=== PATIENT | male | born 1960 | race Hispanic/Latino ===

== ENCOUNTER 2018-11-20 07:06 | Day surgery (SDC) | payer BC ==
[2018-11-20 07:41] VITALS: BP 106/47
[2018-11-20 08:04] LABS: INR 1.09 (0.87-1.13)
[2018-11-20 08:05] LABS: Partial Thromboplastin Time 27.1 Sec. (24.2-36.6)
[2018-11-20 08:08] LABS: BUN/Creatinine Ratio 15; Basophils % (Auto) 0.9 % (0.0-1.8); Blood Urea Nitrogen 12 mg/dL (9-20); Calcium 8.5 mg/dL (8.4-10.2); Eosinophils # (Auto) 0.1 K/mm3 (0.0-0.4); Eosinophils % (Auto) 3.2 % (0.0-4.3); Hemoglobin 11.6 gm/dl (11.8-15.2); Hemolysis Index 41; Lymphocytes # (Auto) 0.8 K/mm3 (1.2-5.4); Lymphocytes % (Auto) 31.1 % (13.4-35.0); Mean Corpuscular HGB Conc 33 % (32-34); Mean Corpuscular Volume 92 fl (84-94); Monocytes # (Auto) 0.3 K/mm3 (0.0-0.8); Monocytes % (Auto) 10.9 % (0.0-7.3); Platelet Count 168 K/mm3 (140-440)
[2018-11-20 08:09] LABS: Red Cell Distribution Width 22.8 % (13.2-15.2)
[2018-11-20] MEDS ORDERED: SUBLIMAZE IV NR (08:37)
[2018-11-20] MEDS ORDERED: VERSED IV NR (08:37)
--- NOTE | 2018-11-20 13:09 | Short Stay Summary ---
Short Stay Documentation Date of service: 11/20/18 - History H&P: obtained from office - Allergies and Medications Current Medications: Allergies No Known Allergies Allergy (Verified 10/10/13 07:25) Home Medications Medication Instructions Recorded Confirmed Last Taken Type No Known Home Medications [No 11/20/18 11/20/18 Unknown History Reported Home Medications] - Brief post op/procedure progress note Date of procedure: 11/20/18 Pre-op diagnosis: tibial lesions Post-op diagnosis: same Procedure: ble CT Anesthesia: local Surgeon: EVELINE MARQUES Condition: stable - Disposition Condition at discharge: Good Disposition: DC-01 TO HOME OR SELFCARE Short Stay Discharge Plan Activity: advance as tolerated Weight Bearing Status: Weight Bear as Tolerated Diet: regular Wound: keep clean and dry, per your surgeon's advice Follow up with: PRIMARY CARE, [Primary Care Provider] - 7 Days
--- NOTE | 2018-11-20 13:10 | Procedure Note ---
Date of procedure: 11/20/18 Pre-op diagnosis: tibial lesions Post-op diagnosis: other (soft tissue inflammation) Procedure: The patient was brought to the CT scanner in anticipation of biopsy of tibial bone lesions, artifacts conservator images and bilateral lower extremity CT were performed which demonstrates no apparent tibial bone lesions. There is subcutaneous soft tissue inflammation. No procedure was therefore performed. Surgeon: EVELINE MARQUES
--- NOTE | 2018-11-20 14:27 | Cat Scan Report ---
CT LOWER EXTREMITY LEFT WITHOUT CONTRAST History: Bone cyst. Technique: Helical CT with sagittal and coronal reformatted images. Sagittal and coronal reformatted images. Findings: No comparison exam. Mild osteopenia is suspected. There is no evidence for fracture, periostitis, bone lesion or bony destruction. No significant joint pathology is detected. The soft tissues are unremarkable. Impression: Mild osteopenia, otherwise, unremarkable exam. No suspicious bone lesion is detected on CT.
== END 2018-11-20 11:50 | disposition home or self-care (01) ==
LOC: CATHLABREC 07:06 → EDSTATUS 07:30 → CATHLABREC 11:50
PROVIDERS: ATTEND Radiology Diagnostic Radiology
DX: M85.88 Other specified disorders of bone density and structure, other site (principal); E78.00 Pure hypercholesterolemia, unspecified; I10 Essential (primary) hypertension; K21.9 Gastro-esophageal reflux disease without esophagitis; E11.9 Type 2 diabetes mellitus without complications; Z72.89 Other problems related to lifestyle; Z98.890 Other specified postprocedural states; Z79.899 Other long term (current) drug therapy
CPT/HCPCS: 36415; 80048; 85025; 85610; 85730; J2250; J3010

== ENCOUNTER 2018-12-11 10:29 | Day surgery (SDC) | payer BC ==
[~2018-12-11 10:29] MED LIST: ANCEF/STERILE WATER 2 GM/20 ML 2 GM/20 ML SYRINGE IV NR; NACL 0.9% 1000 ML 1,000 ML IV SCH
[2018-12-11 11:20] LABS: Basophils % (Auto) 0.8 % (0.0-1.8); Eosinophils # (Auto) 0.1 K/mm3 (0.0-0.4); Eosinophils % (Auto) 4.3 % (0.0-4.3); Hematocrit 40.8 % (35.5-45.6); Hemoglobin 13.5 gm/dl (11.8-15.2); Lymphocytes # (Auto) 0.8 K/mm3 (1.2-5.4); Lymphocytes % (Auto) 24.7 % (13.4-35.0); Mean Corpuscular HGB Conc 33 % (32-34); Mean Corpuscular Volume 94 fl (84-94); Monocytes # (Auto) 0.3 K/mm3 (0.0-0.8); Monocytes % (Auto) 9.9 % (0.0-7.3); Platelet Count 177 K/mm3 (140-440); Red Blood Count 4.36 M/mm3 (3.65-5.03)
[2018-12-11 11:26] LABS: Red Cell Distribution Width 20.1 % (13.2-15.2)
[2018-12-11 11:32] LABS: BUN/Creatinine Ratio 17; Blood Urea Nitrogen 10 mg/dL (9-20); Calcium 8.9 mg/dL (8.4-10.2); Hemolysis Index 7
[2018-12-11 12:31] LABS: INR 1.01 (0.87-1.13)
[2018-12-11 12:32] LABS: Partial Thromboplastin Time 27.2 Sec. (24.2-36.6)
[2018-12-11] MEDS ORDERED: HEPARIN/NS 5000 UNIT/500ML(CATH LAB) 1,000 ML IR ONE (13:23)
[2018-12-11] MEDS ORDERED: XYLOCAINE 2% INFILTRATI ONE (13:24)
[2018-12-11] MEDS ORDERED: SUBLIMAZE ONE (13:24)
[2018-12-11] MEDS ORDERED: VERSED ONE (13:24)
[2018-12-11] MEDS ORDERED: HEPARIN 10,000 UNITS/10 ML ONE (13:24)
--- NOTE | 2018-12-11 14:34 | Short Stay Summary ---
Short Stay Documentation Date of service: 12/11/18 - History Principal diagnosis: pvd with rest pain H&P: obtained from office - Allergies and Medications Current Medications: Allergies No Known Allergies Allergy (Verified 10/10/13 07:25) Home Medications Medication Instructions Recorded Confirmed Last Taken Type No Known Home Medications [No 11/20/18 11/20/18 Unknown History Reported Home Medications] Active Medications Cefazolin Sodium (Ancef/Sterile Water 2 Gm/20 Ml) 2 gm in 20 mls @ 80 mls/hr IV PREOP NR; Protocol Stop: 12/11/18 23:59 Sodium Chloride (Nacl 0.9% 1000 Ml) 1,000 mls @ 42 mls/hr IV DIRECT PAULA Last Admin: 12/11/18 11:22 Dose: 42 mls/hr Documented by: - Brief post op/procedure progress note Date of procedure: 12/11/18 Pre-op diagnosis: pvd with rest pain Post-op diagnosis: same Procedure: llef diagnostic angiography Anesthesia: local Surgeon: EVELINE MARQUES Estimated blood loss: minimal Pathology: none Condition: stable - Disposition Condition at discharge: Good Disposition: DC-01 TO HOME OR SELFCARE Short Stay Discharge Plan Activity: advance as tolerated Weight Bearing Status: Weight Bear as Tolerated Diet: regular Wound: keep clean and dry, per your surgeon's advice Follow up with: EVELYN CONSTANTINO MD [Other] - 7 Days
--- NOTE | 2018-12-11 14:41 | Operative Report ---
Operative Report Operative Report: Exam: Left lower extremity angiography Clinical indication: Patient with a history of soft tissue pain on the anterior aspect of his left tibia at rest Date: 12/11/2018 Procedure: Following an explanation of the risks, benefits and alternatives; written informed consent was obtained. The patient was brought to the interventional suite and placed in supine position on the examination table. Initial ultrasound evaluation of the right groin demonstrated a patent right common femoral artery. The patient's right groin was prepped and draped in usual sterile fashion. 1% lidocaine was used for anesthesia. Under ultrasound guidance, the right common femoral artery was cannulated with a 7 cm 21-gauge needle. A 0.018 guidewire was advanced centrally. The needle was removed and a microsheath. 0.018 guidewire was exchanged for a 0.035 guidewire and the microsheath exchanged for a 5 [place] vascular sheath. An omniflush catheter was advanced over the guidewire to the distal abdominal aorta to the bifurcation was uncrossed using only first catheter and guidewire up. He was performed in the catheter in the distal abdominal aorta, left external iliac artery, left superficial femoral artery proximally and distally. Extensors no significant disease. Patient has 3 vessel runoff to the foot. In the region of interest, there is no hypervascularity or hypovascularity. At this point, the catheter was removed over the guidewire. The sheath was removed. Hemostasis was then achieved using an Angio-Seal arterial closure device. A sterile dressing was applied. The patient tolerated the procedure well. There were no immediate post procedure complications. Conscious sedation was performed and radiologic testing. Continuous cardiopulmonary monitoring was utilized. Impression: Left lower extremity angiography demonstrating no significant disease.
[2018-12-11 15:46] VITALS: BP 109/45
== END 2018-12-11 15:49 | disposition home or self-care (01) ==
LOC: CATHLABREC 10:29
PROVIDERS: ATTEND Radiology Diagnostic Radiology
DX: I70.213 Atherosclerosis of native arteries of extremities with intermittent claudication, bilateral legs (principal); E78.00 Pure hypercholesterolemia, unspecified; I10 Essential (primary) hypertension; K21.9 Gastro-esophageal reflux disease without esophagitis; E11.9 Type 2 diabetes mellitus without complications; Z72.89 Other problems related to lifestyle; Z98.890 Other specified postprocedural states; Z79.01 Long term (current) use of anticoagulants
CPT/HCPCS: 36247; 36415; 75710; 80048; 85025; 85610; 85730; 99156; 99157; C1760; C1769; C1887; J1644; J2250; J3010; J7030; Q9967